=== PATIENT | female | born 1960 | race Two or more races ===

== ENCOUNTER 2017-08-15 17:16 | Emergency (ER) | payer SELFPAY ==
[~2017-08-15] VITALS: Ht 152.4 cm; Wt 63.5 kg
[2017-08-15 17:20] VITALS: BP 107/84
--- NOTE | 2017-08-15 17:21 | Emergency Room Report ---
History of Present Illness General Chief Complaint: Dyspnea/Respdistress Source: Patient Present Illness HPI [id number] BIBEMS with SOB and dizziness after HD Goes MWF to HD for many years has had kidney transplant previously endorses this happened before during HD as well Patient denies chest pain, fever/chills, cough, abd pain Feels well otherwise Allergies: Coded Allergies: CEFAZOLIN (Verified Allergy, Severe, 08/15/17) Patient History Past Medical History: renal disease, dialysis Past Surgical History: none Pertinent Family History: none Social History: Denies: smoking, alcohol use, drug use Last Menstrual Period: na Now: No Immunizations: UTD Reviewed Nursing Documentation: PMH: Agreed, PSxH: Agreed Review of Systems All Other Systems: negative except mentioned in HPI Physical Exam Vital Signs Date Time Temp Pulse Resp B/P (MAP) Pulse Ox O2 Delivery O2 Flow Rate FiO2 08/15/17 17:10 96.6 91 28 107/84 100 Room Air Sp02 EP Interpretation: reviewed, normal General Appearance: normal inspection, well appearing, no apparent distress, alert, GCS 15, non-toxic, other - Very anxious, hyperventilating Head: normocephalic, atraumatic Eyes: bilateral eye PERRL, bilateral eye EOMI ENT: normal ENT inspection, hearing grossly normal, normal voice Neck: normal inspection, full range of motion, supple, no bony tend Respiratory: normal inspection, lungs clear, normal breath sounds, no respiratory distress, no retraction, no accessory muscle use, no wheezing, speaking full sentences Cardiovascular #1: regular rate, rhythm, no edema Gastrointestinal: normal inspection, normal bowel sounds, non tender, soft, no guarding, no hernia Genitourinary: no CVA tenderness Musculoskeletal: normal inspection, back normal, normal range of motion, Kennedy' s Sign negative Neurologic: normal inspection, alert, oriented x3, responsive, deputy of counter intelligence III-XII nml as tested, motor strength/tone normal, speech normal Psychiatric: normal inspection, judgement/insight normal, mood/affect normal Skin: normal inspection, normal color, no rash Medical Decision Making Diagnostic Impression: Primary Impression: Dyspnea Qualified Codes: R06.00 - Dyspnea, unspecified Additional Impression: Anxiety ER Course VSS. Labs: No leuks. H&H stable. K normal. SerumCr c/w known CKD ECG NSR, prolonged QTc CXR negative for PNA, CHF - doubt fluid overload as just finished HD Likely anxiety - improved with IV ativan 0.5mg. Feels better DC home took home Advised to followup with livestock feeder on multiple occassions of SOB/dizziness after HD, ?disequilibirum syndrome Advised to avoid QTc prolonging agents in the future Return to ER for worsning SOB, chest pain EKG Diagnostic Results Rate: normal Rhythm: other - prolonged QTC ST Segments: no acute changes ASA given to the pt in ED: No Rhythm Strip Diag. Results EP Interpretation: yes Rate: 75 Rhythm: NSR, no PVC's, no ectopy Chest X-Ray Diagnostic Results Chest X-Ray Diagnostic Results : Chest X-Ray Ordered: Yes # of Views/Limited/Complete: 1 View Indication: Shortness of Breath EP Interpretation: Yes Interpretation: no consolidation, no effusion, no pneumothorax, no acute cardiopulmonary disease Impression: No acute disease Electronically Signed by: Dr Enio Hurtado Last Vital Signs Date Time Temp Pulse Resp B/P (MAP) Pulse Ox O2 Delivery O2 Flow Rate FiO2 08/15/17 17:10 96.6 91 28 107/84 100 Room Air Status: improved Disposition: HOME, SELF-CARE ENIO HURTADO M.D. Aug 15, 2017 17:21
[2017-08-15] MEDS ORDERED: LORazepam Inj 2mg/ml 1ml IV ONE (17:30)
[2017-08-15 17:39] LABS: BASOPHILS % (AUTO) 0.6 % (0.0-2.0); EOSINOPHILS % (AUTO) 0.5 % (0.0-3.0); LYMPHOCYTES % (AUTO) 15.9 % (20.0-45.0); MEAN CORPUSCULAR HEMOGLOBIN 29.2 PG (27.0-31.0); MEAN CORPUSCULAR HGB CONC 31.1 G/DL (32.0-36.0); MEAN CORPUSCULAR VOLUME 94 FL (80-99); MEAN PLATELET VOLUME 6.3 FL (6.5-10.1); MONOCYTES % (AUTO) 4.3 % (1.0-10.0); NEUTROPHILS % (AUTO) 78.6 % (45.0-75.0); PLATELET COUNT 232 K/UL (150-450); RED CELL DISTRIBUTION WIDTH 13.4 % (11.6-14.8); WHITE BLOOD COUNT 8.2 K/UL (4.8-10.8)
[2017-08-15 18:00] LABS: ALBUMIN/GLOBULIN RATIO 1.5 (1.0-2.7); CALCIUM 8.3 mg/dL (8.6-10.2); CREATININE 6.2 mg/dL (0.5-0.9); POTASSIUM 4.7 mEQ/L (3.4-4.9); TOTAL PROTEIN 7.2 g/dL (6.6-8.7); TROPONIN I < 0.30 ng/mL (<=0.30)
[2017-08-15 18:10] LABS: CKMB 4.8 ng/mL (< 3.8)
[2017-08-15 18:46] VITALS: BP 153/83
[2017-08-15 18:52] VITALS: BP 153/83
--- NOTE | 2017-08-16 11:37 | Diagnostic Imaging Report ---
Indication: Dyspnea Comparison: None A single view chest radiograph was obtained. Findings: There is a left jugular permacath present in good position. Left axillary stent noted. The lungs are clear. Heart size is within normal limits. The bones are osteopenic. Impression: No acute findings
--- NOTE | 2017-08-16 18:01 | Cardiology Report ---
APPROVED REPORT EKG Measurement Heart [id number] Normal sinus rhythm Septal infarct, age undetermined Prolonged QT Abnormal ECG
== END 2017-08-15 18:52 | disposition home or self-care (01) ==
LOC: EDBD 17:16 → EMR 17:45
DX: R06.00 Dyspnea, unspecified (principal); F41.9 Anxiety disorder, unspecified
CPT/HCPCS: 36415; 71010; 80053; 82550; 82553; 84484; 85025; 93005; 96374; 99284